=== PATIENT | male | born 1960 | race Caucasian/White ===

== ENCOUNTER 2016-09-04 10:49 | Inpatient (IN) ==
--- NOTE | 2016-09-04 11:38 | EKG Report ---
Stationary ECG Study [facility] ER Test Date: 09/04/2016 11:18:10 AM Pat Name: FRANKIE MEDINA Department: Room: Gender: M [employer] Operator: : 1960 Requested by: Miguel Keller Order Number: [id number] Honey MD: ELBERT MARRERO Intervals [place] Rate: 99 P: 71 ID: [id number] QRS: 77 QRSD: 107 T: 65 QT: 342 QTc: 398 Interpretive Statements SINUS RHYTHM Electronically Signed On 09-04-16 13:58:34 CDT by ELBERT MARRERO [email or web address]
[2016-09-04 11:53] LABS: Basophils # 0.1 10*3/uL (0.0-0.2); Basophils % 0.6 % (0.0-0.8); Eosinophils % 0.4 % (0.00-10.9); Hematocrit 39.2 VOL% (42.0-52.0); Hemoglobin 14.5 GM/DL (14.0-18.0); Immature Granulocytes % 0.6 %; Immature Granulocytes Absolute 0.05 #; Lymphocytes # 1.2 10*3/uL (1.4-4.0); Lymphocytes % 13.8 % (21.2-54.2); Mean Corpuscular Hemoglobin 35 PG (27-34); Mean Corpuscular Volume 93.8 FL (87-102); Mean Platelet Volume 9.8 FL (9.6-12.0); Monocytes # 0.7 10*3/uL (0.11-0.8); Monocytes % 8.7 % (1.7-12.7); Neutrophils # 6.4 10*3/uL (1.4-7.4); Neutrophils % 75.9 % (38.7-73.9); Platelet Count 156 T/CUMM (130-400); Red Blood Count 4.18 MC/CUMM (3.8-5.5); Red Cell Distribution Width 12.4 % (9.3-17.3); White Blood Count 8.4 T/CUMM (4-12)
[2016-09-04 12:11] LABS: Albumin 4.5 G/DL (3.4-5.0); Bilirubin,Total 0.8 MG/DL (0.2-1.0); Calcium 12.5 MG/DL (8.5-10.1); Osmolality,Calculated 241.6 MOS/KG (273-304); Potassium 3.9 MMOL/L (3.5-5.1)
--- NOTE | 2016-09-04 12:30 | XRay Report ---
2 view chest. Indication: Chest pain. The heart is normal in size. The pulmonary vasculature is normal. There is no consolidation, pneumothorax, or pleural effusion. Carotid artery calcification is visible. Postsurgical changes in the neck. Impression: No acute abnormality. PROCEDURE INTERPRETED AT [facility] DEPARTMENT OF RADIOLOGY Final Report Signed by: Dr. Zully Alvarado
--- NOTE | 2016-09-04 13:52 | Emergency Department Note ---
Arrival - Arrival Chief Complaint: Chest Pain Stated Complaint: chest pain,dizzy ED Nursing Triage Note: Pt c/o chest pain, SOB, dizziness, and nausea x 1 wk. Mode of Arrival: Ambulatory Limitations: No Limitations Source: Patient Time Seen by Provider: 09/04/16 13:48 - History of Present Illness HPI Narrative: This 56-year-old white male presents with a 1 week history of dizziness, nausea with daily vomiting, and in the last 4 days associated with midepigastric retrosternal type chest pain. He specifically denies chills, fever, or shortness of breath. He states he has felt close to passing out in the last couple days but never all the way. He also presents with abraded forearms from what he describes as walking through prior patches. At the moment his main complaint is just generally not feeling well. He appears medically stable at the moment Onset (ago): week(s) (Patient presents 1 week post onset of symptoms) Allergies/Adverse Reactions: Allergies Allergy/AdvReac Type Severity Reaction Status Date / Time No Known Allergies Allergy Verified 06/08/14 10:10 Home Medications: Home Medications Medication Instructions Recorded Confirmed Type Cyclobenzaprine [Flexeril] 10 mg PO BID 06/08/14 09/04/16 History Gabapentin [Gabapentin] 800 mg PO QID 06/08/14 09/04/16 History metFORMIN XR [Glucophage Xr] 500 mg PO BID 06/08/14 09/04/16 History HYDROcodone/ACETAMIN 10-325 [[place] 1 tablet PO Q6H PRN #20 tablet 03/03/1509/04 Rx 10-325] Cholecalciferol (Vitamin D3) 50,000 unit PO WE 09/04/16 09/04/16 History [Vitamin D3] Cyanocobalamin (Vitamin B-12) 1,000 mcg PO DAILY 09/04/16 09/04/16 History [Vitamin B-12] Lisinopril/Hydrochlorothiazide 2 each PO DAILY 09/04/16 09/04/16 History [Lisinopril-Hctz 20-12.5 mg Tab] Medical,Surgical,& Family Hx - Medical History Cardio: History of: Hypertension Endocrine: History of: Diabetes Mellitus (NIDDM) ("borderline") - Social History Smoking Status: Current every day smoker Exam Vital Signs: Vital Signs Temperature 98.4 F 09/04/16 13:22 Pulse Rate 99 H 09/04/16 13:22 Respiratory Rate 20 09/04/16 13:22 Blood Pressure 117/75 09/04/16 13:22 O2 Sat by Pulse Oximetry 97 09/04/16 13:22 Course - Reevaluation(s) Reevaluation #1: Discussed with patient his severe metabolic abnormalities and need for admission - Consultations Consultation #1: Discussed with hospitalist service who will see for further evaluation and treatment. Results - Labs CBC & BMP: 09/04/16 11:30 09/04/16 11:30 Labs: I reviewed the lab and noted the negative cardiac's, severely depressed sodium, and renal azotemia. - Diagnostic Findings Procedure: Chest x-ray: image reviewed by me, report reviewed by me (Normal chest) Disposition Clinical Impression: Hyponatremia, Hypoglycemia, Noncardiac chest pain, Renal azotemia Case discussed with: patient Disposition: Still a Patient Condition: Guarded Time of Disposition: 14:43
[2016-09-04] MEDS ORDERED: NITROGLYCERIN SL 0.4 MG TABLET SL PRN (13:53)
[2016-09-04] MEDS ORDERED: KETOROLAC 30 MG/1 ML VIAL IV STA ×2 (13:53→13:56)
[2016-09-04] MEDS ORDERED: ONDANSETRON 4 MG/2 ML VIAL IV STA (13:53)
[2016-09-04] MEDS ORDERED: ASPIRIN 325 MG TABLET PO STA (13:53)
[2016-09-04] MEDS ORDERED: SODIUM CHLORIDE 0.9% 1,000 ML IV STA (13:53)
[2016-09-04] MEDS ORDERED: METOCLOPRAMIDE 10 MG/2 ML VIAL IV STA (13:55)
[2016-09-04] MEDS ORDERED: PANTOPRAZOLE 40 MG VIAL IV STA (13:55)
[2016-09-04] MEDS ORDERED: cefTRIAXone 1,000 MG in SODIUM CHLORIDE 0.9% 100 ML IV STA (13:56)
[2016-09-04] MEDS ORDERED: DEXTROSE 50% 25 GM/50 ML VIAL IV ONE (13:57)
[2016-09-04] MEDS ORDERED: PANTOPRAZOLE 40 MG VIAL IV ONE (14:07)
[2016-09-04] MEDS ORDERED: ONDANSETRON 4 MG/2 ML VIAL ONE (14:07)
[2016-09-04] MEDS ORDERED: METOCLOPRAMIDE 10 MG/2 ML VIAL ONE ×2 (14:07→14:32)
[2016-09-04] MEDS ORDERED: ASPIRIN 325 MG TABLET ONE (14:08)
[2016-09-04] MEDS ORDERED: KETOROLAC 30 MG/1 ML VIAL ONE (14:08)
[2016-09-04] MEDS ORDERED: cefTRIAXone 1,000 MG VIAL ONE (14:09)
[2016-09-04] MEDS ORDERED: ALUM/MAG/SIMETH/LIDO VISC 1:1 30 ML BOTTLE PO STA (14:40)
[2016-09-04] MEDS ORDERED: NITROGLYCERIN 2% OINT 1 INCH/GM PACK TOP STA (14:41)
[2016-09-04] MEDS ORDERED: NITROGLYCERIN 2% OINT 1 INCH/GM PACK TOP ONE (14:44)
[2016-09-04] MEDS ORDERED: ALUM/MAG/SIMETH/LIDO VISC 1:1 30 ML BOTTLE PO ONE (14:47)
--- NOTE | 2016-09-04 14:57 | Hospitalist History & Physical ---
<Salbador Pulido - Last Filed: 09/04/16 16:18> Assessment and Plan (1) Hyponatremia Status: Acute Assessment and plan: Sodium was noted at 117 at the time of ED encounter. This may be secondary to volume depletion related to thiazide diuretic use. We will gently rehydrate and reassess in a.m.. We will carefully correct the deficit and recheck labs in a.m. Current Visit: Yes (2) Chest pain Status: Acute Assessment and plan: The patient certainly has multiple risk factors that may attribute to acute coronary syndrome. The patient has documented hypertension, diabetes, and is a current cigarette smoker. We will conduct a full cardiac workup; serial cardiac enzymes, echocardiogram, carotid Dopplers, lipid panel, and thyroid panel. If findings are positive, we will consult cardiology to evaluate. Current Visit: Yes (3) Hypertension Status: Acute Assessment and plan: Blood pressures are stable. We will hold current oral antihypertensive agents for now. Patient is currently taking a thiazide diuretic this may be a causative factor for the crows hyponatremia and acute kidney injury. We will monitor closely Current Visit: Yes (4) Acute kidney injury Status: Acute Assessment and plan: BUN and creatinine noted at 34 and 2.60. This may be largely attributed to volume depletion. The patient is currently on a thiazide agent for hypertension control. We will hold all antihypertensives for now and gently rehydrate. We will recheck labs in a.m; if no improvement we will consult renal. Current Visit: Yes (5) Nicotine addiction Status: Acute Assessment and plan: Patient reports that he is a current everyday smoker has no desire to quit. We will order nicotine patch for use during the clinical encounter if patient desires. Current Visit: Yes History of Present Illness Chief complaint: Chest pain/nausea/vomiting/shortness of breath History of present illness: This is a very pleasant 56-year-old male that presented to the ED at [facility] this afternoon for the evaluation of chest pain, shortness of breath, dizziness, and nausea. Patient has a medical history significant for: Hypertension, nicotine addiction, and diabetes mellitus. The patient reports no surgical history at the time of encounter. The patient reports the onset of the above symptoms 1 week prior to presentation. Initially , the patient reported that he was experiencing dizziness, nausea, and vomiting. He reports the initiation of some mid epigastric pain 4 days ago. He states that he "almost fell out a couple of times"; however he never passed out. The patient became alarmed due to the duration of the symptoms and decided to present to the ED for further evaluation. The patient was assessed at the time of ED presentation; labs were obtained. Complete blood count reported white blood cell count 8.4, hemoglobin 14.5, hematocrit 39.2, and platelet count 156. Coagulation panel reported d-dimer 1.4. Chemistry panel reported sodium at 117, potassium 3.9, chloride 72, carbon dioxide 31, BUN 34, creatinine 2.60, and glucose 67. Cardiac enzymes reported troponin at less than 0.015 and BNP at less than 2. Serum alcohol level was noted at 90. Chest x-ray was obtained which was essentially negative for any acute cardiopulmonary processes. After brief discussion with both Dr. Bowen and Dr. Argueta, the patient will be admitted to the hospitalist services for continuation of care. Medications have been reviewed and reconciled. CODE STATUS has been discussed; the patient is a FULL CODE. Home Medications Medication Instructions Recorded Confirmed Type Cyclobenzaprine [Flexeril] 10 mg PO BID 06/08/14 09/04/16 History Gabapentin [Gabapentin] 800 mg PO QID 06/08/14 09/04/16 History metFORMIN XR [Glucophage Xr] 500 mg PO BID 06/08/14 09/04/16 History HYDROcodone/ACETAMIN 10-325 [[place] 1 tablet PO Q6H PRN #20 tablet 03/03/1509/04 Rx 10-325] Cholecalciferol (Vitamin D3) 50,000 unit PO WE 09/04/16 09/04/16 History [Vitamin D3] Cyanocobalamin (Vitamin B-12) 1,000 mcg PO DAILY 09/04/16 09/04/16 History [Vitamin B-12] Lisinopril/Hydrochlorothiazide 2 each PO DAILY 09/04/16 09/04/16 History [Lisinopril-Hctz 20-12.5 mg Tab] Allergies Allergy/AdvReac Type Severity Reaction Status Date / Time No Known Allergies Allergy Verified 06/08/14 10:10 Medical,Surgical,& Family Hx - Medical History Cardio: History of: Hypertension Endocrine: History of: Diabetes Mellitus (NIDDM) ("borderline") - Social History Smoking Status: Current every day smoker Exam - Constitutional Vitals: Period Temp Pulse Resp BP Sys/Patino Pulse Ox Last 24 Hr 97.5 F-98.4 F 99-101 20-20 108-129/61-75 97-98 General appearance: normal weight, no acute distress - Head Head exam: Present: normal inspection, normocephalic, atraumatic - Eye Eye exam: Present: EOMI, conjunctival injection Pupils: Present: MARGOT, normal accommodation - ENT ENT exam: Present: normal exam, normal external ear exam, normal oropharynx - Neck Neck exam: Present: normal inspection. Absent: lymphadenopathy, meningismus, thyromegaly - Respiratory Respiratory exam: Present: clear to auscultation bilaterally. Absent: rales, rhonchi, stridor, wheezes - Cardiovascular Cardiovascular exam: Present: regular rate and rhythm. Absent: carotid bruit, diastolic murmur, gallop, JVD, rubs, systolic murmur - GI/Abdominal GI/Abdominal exam: Present: normal bowel sounds, soft - Extremities Exam Extremities exam: Present: normal inspection, normal capillary refill, full ROM. Absent: edema - Back Exam Back exam: Present: normal inspection - Neurological Exam Neurological exam: Present: alert, oriented X3, CN II-XII intact - Psychiatric Psychiatric exam: Present: normal affect, normal mood. Absent: depressed - Skin Skin exam: Present: normal color, warm, dry Results - Labs CBC & BMP: 09/04/16 11:30 09/04/16 11:30 Lab Results: I have reviewed the past 24 hour labs <Pravin Argueta - Last Filed: 09/04/16 16:50> History of Present Illness History of present illness: Patient seen and examined independently of BRUCE Pulido, agree with history, assessment and plan as documented. 56 y/o WM presents with epigastric pain and N/V. Symptoms for around a week. HTN, DM and current smoker. No denies any family history of heart problems. A/P; DESI: most likely secondary to dehydration, IV diuresis, ua, urine lytes and renal u/s Hyponatremia: most likely secondary to dehydration, iv fluids, check osmolality Hypercalcemia: possibly 2/2 dehydration, iv fluids, check vit d, tsh, hold hctz , check vit d (on supplementation), if no improvement will ignitiate further work-up Epigastric/chest pain: not consistent with acs, does have risk factors, trend troponin, echo Dizziness; also possibly 2/2 dehydration, iv fluids, check orthostatic vitals, carotid dopplers, monitor closely Nausea/vomiting: reports preceded by pain. will monitor Dehydration: Works in a hot environment, decrease po intake today at work. IV fluids, check ua and cpk DM; SSI HTN; holding lisinpirl-hctz Exam - Constitutional Vitals: Period Temp Pulse Resp BP Sys/Patino Pulse Ox Last 24 Hr 97.5 F-98.4 F 98-101 18-20 108-157/61-86 97-100 Results - Labs CBC & BMP: 09/04/16 11:30 09/04/16 11:30
--- NOTE | 2016-09-04 16:09 | ECHO Report ---
Lalit Guillen Exam Date: 09/04/2016 15:07 Referring Physician: Technologist: Ros Garcia RDCS Age: 56 Ht (in): 69 Wt (lb): 180 Gender: M Exam Location: [facility] Echo Indications: Chest pain, unspecified, Dizziness and giddiness, Shortness of breath, Essential (primary) hypertension, NIDDM, Nicotine dependence, cigarettes, uncomplicated BP: 117 / 75 HR: 97 Rhythm: Sinus Technical Quality: Fair IMPRESSIONS 1. Left ventricle is normal size and systolic function with ejection fraction of 60%. Normal wall thickness. No segmental wall motion normality's. 2. Other cardiac chambers are normal size and function. 3. Aortic valve with some sclerosing and calcification but good excursion without stenosis. There is mild to moderate aortic insufficiency. 4. Other cardiac valves are normal anatomically functionally. 5. No pericardial effusion is noted. MEASUREMENTS (Male / Female) Normal Values 2D ECHO LV Diastolic Diameter PLAX 4.3 cm 4.2 - 5.9 / 3.9 - 5.3 cm LV Systolic Diameter PLAX 2.8 cm LV Fractional Shortening PLAX 36.4 % IVS Diastolic Thickness 1.0 cm 0.6 - 1.0 / 0.6 - 0.9 cm LVPW Diastolic Thickness 1.0 cm 0.6 - 1.0 / 0.6 - 0.9 cm RV Internal Dim ED PLAX 2.4 cm Aortic Root Diameter 3.4 cm LA Systolic Diameter LX 3.3 cm 3.0 - 4.0 / 2.7 - 3.8 cm FINDINGS Left Ventricle Normal left ventricular cavity size. Normal left ventricular wall thickness. Left ventricular ejection fraction is estimated at 60 %. Right Ventricle The right ventricle is normal in size and function. Right Atrium The right atrium is normal in size. Left Atrium The left atrium is normal in size. Mitral Valve Morphologically normal mitral valve without significant stenosis or prolapse. There is no mitral regurgitation. Aortic Valve Mild aortic valve calcification. Mild to moderate aortic valve regurgitation. Tricuspid Valve Morphologically normal tricuspid valve without significant stenosis or regurgitation. Pulmonary artery systolic pressure is normal. Pulmonic Valve Morphologically normal pulmonic valve without significant stenosis. There is no pulmonic regurgitation. Pericardium Normal pericardium without effusion. Aorta Normal ascending aorta dimension. Gabriele Ross MD (Electronically Signed) Final Date: 04 September 2016 16:08
[2016-09-04] MEDS ORDERED: DOCUSATE SODIUM 100 MG CAPSULE PO PRN (17:33)
[2016-09-04] MEDS ORDERED: NICOTINE 21 MG/24 HR PATCH TRANSDERM PRN (17:33)
[2016-09-04] MEDS ORDERED: GLUCAGON 1 MG VIAL IM PRN (17:33)
[2016-09-04] MEDS ORDERED: ONDANSETRON 4 MG/2 ML VIAL IV PRN (17:33)
[2016-09-04] MEDS ORDERED: DEXTROSE 50% 25 GM/50 ML VIAL IV PRN (17:33)
[2016-09-04] MEDS ORDERED: ALUMINUM/MAGNES/SIMETH MAX STR 30 ML UDCUP PO PRN (17:33)
[2016-09-04] MEDS ORDERED: ACETAMINOPHEN 325 MG TABLET PO PRN (17:33)
[2016-09-04] MEDS ORDERED: ENOXAPARIN 30 MG/0.3 ML SYRINGE SUBCUT SCH (17:33)
[2016-09-04] MEDS: INSULIN LISPRO 100 UNIT/ML SUBCUT SCH ×2 (17:59→21:22)
[2016-09-04] MEDS: GABAPENTIN 400 MG CAPSULE PO SCH ×2 (18:12→20:39)
[2016-09-04] MEDS: SODIUM CHLORIDE 0.9% 1,000 ML IV SCH (18:14)
--- NOTE | 2016-09-04 19:01 | Ultrasound Report ---
Bilateral renal ultrasound. Indication: Renal failure. No prior study. The kidneys are normal in size. The right kidney measures 12.3 x 5.4 x 5.4 cm. The left kidney measures 12.6 x 6.3 x 6.6 cm. The parenchymal echogenicity is normal. The cortical thickness is normal. No hydronephrosis. No cystic or solid masses. There is fatty infiltration of the liver. Impression: No abnormality is seen. PROCEDURE INTERPRETED AT [facility] DEPARTMENT OF RADIOLOGY Final Report Signed by: Dr. Zully Alvarado
[2016-09-04 19:08] LABS: Apearance,Urine CLEAR (Clear); Bilirubin,Urine Negative (Negative); Blood, Urine Negative (Negative); Glucose,Urine (UA) 150 mg/dL (Negative); Ketones,Urine Negative (Negative); Nitrite,Urine Negative (Negative); Protein,Urine Negative; RBC,Urine <1 /HPF (0-4); Urine Color Yellow (Yellow); Urine Specific Gravity 1.006 (1.001-1.035); Urine Urobilinogen < 2.0 EU/DL (0.2-1.0); WBC,Urine 2 /HPF (0-6)
--- NOTE | 2016-09-04 19:09 | Ultrasound Report ---
Bilateral carotid Doppler. Indication: Dizziness. Grayscale, color-flow, and spectral analysis performed and interpreted. Within both carotid bulbs, there is mixed atherosclerotic plaque. The right internal carotid artery peak systolic velocity is 67 cm/s, with an IC/CC ratio 1.0. The left internal carotid artery peak systolic velocity is 76 cm/s, with an IC/CC ratio 0.9. There is antegrade flow within each vertebral artery. Impression: Using NASCET criteria, findings consistent with less than 50% stenosis bilaterally. PROCEDURE INTERPRETED AT [facility] DEPARTMENT OF RADIOLOGY Final Report Signed by: Dr. Zully Alvarado
[2016-09-04 19:12] LABS: Barbiturates Screen,Urine Negative (Negative); Benzodiazepines Screen,Urine Negative (Negative); Cannabinoid Screen,Urine Negative (Negative); Opiate Screen,Urine Positive (Negative); Phencyclidine Screen,Urine Negative (Negative)
[2016-09-04] MEDS: ZALEPLON 5 MG CAPSULE PO PRN (20:39)
[2016-09-05] MEDS: SODIUM CHLORIDE 0.9% 1,000 ML IV SCH ×4 (02:17→20:55)
[2016-09-05 06:08] LABS: Basophils # 0.1 10*3/uL (0.0-0.2); Eosinophils # 0.1 10*3/uL (0.0-0.87); Eosinophils % 0.9 % (0.00-10.9); Hematocrit 34.8 VOL% (42.0-52.0); Hemoglobin 12.7 GM/DL (14.0-18.0); Immature Granulocytes % 0.7 %; Immature Granulocytes Absolute 0.04 #; Lymphocytes # 1.4 10*3/uL (1.4-4.0); Lymphocytes % 23.3 % (21.2-54.2); Mean Corpuscular HGB Conc 36.5 GM/DL (32-36); Mean Corpuscular Hemoglobin 35 PG (27-34); Mean Corpuscular Volume 96.7 FL (87-102); Mean Platelet Volume 10.3 FL (9.6-12.0); Monocytes # 0.5 10*3/uL (0.11-0.8); Monocytes % 9.1 % (1.7-12.7); Neutrophils # 3.8 10*3/uL (1.4-7.4); Platelet Count 125 T/CUMM (130-400); Red Cell Distribution Width 12.4 % (9.3-17.3); White Blood Count 5.8 T/CUMM (4-12)
[2016-09-05 06:39] LABS: Risk Ratio 1.56
[2016-09-05 06:47] LABS: Magnesium 1.9 MG/DL (1.8-2.4); Thyroid Stimulating Hormone 0.809 uIU/ml (0.358-3.74)
[2016-09-05 08:21] LABS: Albumin 3.5 G/DL (3.4-5.0); Calcium 10.4 MG/DL (8.5-10.1); Total Protein 6.6 G/DL (6.4-8.3)
[2016-09-05 08:22] LABS: Osmolality,Calculated 259.4 MOS/KG (273-304); Potassium 4.2 MMOL/L (3.5-5.1)
[2016-09-05] MEDS: INSULIN LISPRO 100 UNIT/ML SUBCUT SCH ×4 (08:33→20:58)
[2016-09-05] MEDS: CYANOCOBALAMIN 500 MCG TABLET PO SCH (09:42)
[2016-09-05] MEDS: GABAPENTIN 400 MG CAPSULE PO SCH ×4 (09:42→20:53)
[2016-09-05] MEDS: PANTOPRAZOLE 40 MG TABLET PO SCH (09:42)
--- NOTE | 2016-09-05 11:24 | Hospitalist Progress Note ---
<Adriane Pulidoda - Last Filed: 09/05/16 11:21> Assessment and Plan (1) Hyponatremia Status: Acute Assessment and plan: Sodium was noted at 117 at the time of ED encounter. This may be secondary to volume depletion related to thiazide diuretic use. We will gently rehydrate and reassess in a.m.. We will carefully correct the deficit and recheck labs in a.m. 09/05-sodium has improved to 126 from 117 on yesterday. We will continue to carefully correct the deficit and recheck labs in a.m. Current Visit: Yes (2) Chest pain Status: Acute Assessment and plan: The patient certainly has multiple risk factors that may attribute to acute coronary syndrome. The patient has documented hypertension, diabetes, and is a current cigarette smoker. We will conduct a full cardiac workup; serial cardiac enzymes, echocardiogram, carotid Dopplers, lipid panel, and thyroid panel. If findings are positive, we will consult cardiology to evaluate. Current Visit: Yes (3) Hypertension Status: Acute Assessment and plan: Blood pressures are stable. We will hold current oral antihypertensive agents for now. Patient is currently taking a thiazide diuretic this may be a causative factor for the crows hyponatremia and acute kidney injury. We will monitor closely Current Visit: Yes (4) Acute kidney injury Status: Acute Assessment and plan: BUN and creatinine noted at 34 and 2.60. This may be largely attributed to volume depletion. The patient is currently on a thiazide agent for hypertension control. We will hold all antihypertensives for now and gently rehydrate. We will recheck labs in a.m; if no improvement we will consult renal. 09/05-we will continue to carefully rehydrate. We will continue to hold all thiazide agents. Will reassess renal function in a.m. Current Visit: Yes (5) Nicotine addiction Status: Acute Assessment and plan: Patient reports that he is a current everyday smoker has no desire to quit. We will order nicotine patch for use during the clinical encounter if patient desires. Current Visit: Yes Hospitalist: Subjective Interval history: Patient seen and examined; no significant overnight events reported. Noted improvement in his sodium level sodium level improved to 126 today. Reports epigastric pain during breakfast. Exam - Constitutional Vitals: Period Temp Pulse Resp BP Sys/Patino Pulse Ox Last 24 Hr 97.5 F-98.7 F 83-101 18-93 110-157/60-86 92-100 General appearance: normal weight, no acute distress - Head Head exam: Present: normal inspection, normocephalic, atraumatic - Eye Eye exam: Present: EOMI, conjunctival injection Pupils: Present: MARGOT, normal accommodation - ENT ENT exam: Present: normal exam, normal external ear exam, normal oropharynx - Neck Neck exam: Present: normal inspection, lymphadenopathy, meningismus, thyromegaly - Respiratory Respiratory exam: Present: clear to auscultation bilaterally. Absent: rales, rhonchi, stridor, wheezes - Cardiovascular Cardiovascular exam: Present: regular rate and rhythm. Absent: carotid bruit, diastolic murmur, gallop, JVD, rubs, tachycardia - GI/Abdominal GI/Abdominal exam: Present: normal bowel sounds, other (Epigastric pain during meals reported) - Extremities Exam Extremities exam: Present: normal inspection, normal capillary refill, full ROM , edema - Back Exam Back exam: Present: normal inspection - Neurological Exam Neurological exam: Present: alert, oriented X3, CN II-XII intact - Psychiatric Psychiatric exam: Present: normal affect, normal mood - Skin Skin exam: Present: normal color, warm, dry Results - Labs CBC & BMP: 09/05/16 04:25 09/05/16 04:19 Lab Results: I have reviewed the past 24 hour labs <Pravin Argueta - Last Filed: 09/05/16 16:58> Hospitalist: Subjective Interval history: Patient seen and examined independently of BRUCE Pulido, agree with assessment and plan as documented.Today reports that epigastric pain is associated with meals. Pain seems to be more related to GERD. He is a smoker with htn and dm, so would benefit from stress testing, either inpatient or outpatient, will consult cardiology in the morning. Exam - Constitutional Vitals: Period Temp Pulse Resp BP Sys/Patino Pulse Ox Last 24 Hr 97.5 F-98.7 F 74-95 18-93 110-151/60-80 92-95 Results - Labs CBC & BMP: 09/05/16 04:25 09/05/16 04:19
[2016-09-05] MEDS: ZALEPLON 5 MG CAPSULE PO PRN (20:54)
[2016-09-05] MEDS: SIMVASTATIN 20 MG TABLET PO SCH (20:54)
[2016-09-05] MEDS: ENOXAPARIN 40 MG/0.4 ML SYRINGE SUBCUT SCH (20:54)
[2016-09-06 07:01] LABS: Basophils # 0.1 10*3/uL (0.0-0.2); Basophils % 1.7 % (0.0-0.8); Eosinophils # 0.1 10*3/uL (0.0-0.87); Eosinophils % 2.1 % (0.00-10.9); Hematocrit 35.7 VOL% (42.0-52.0); Hemoglobin 12.2 GM/DL (14.0-18.0); Immature Granulocytes % 0.6 %; Immature Granulocytes Absolute 0.03 #; Lymphocytes # 1.8 10*3/uL (1.4-4.0); Lymphocytes % 38.5 % (21.2-54.2); Mean Corpuscular HGB Conc 34.2 GM/DL (32-36); Mean Corpuscular Hemoglobin 34 PG (27-34); Mean Corpuscular Volume 100.3 FL (87-102); Mean Platelet Volume 9.9 FL (9.6-12.0); Monocytes # 0.5 10*3/uL (0.11-0.8); Monocytes % 10.4 % (1.7-12.7); Neutrophils # 2.2 10*3/uL (1.4-7.4); Neutrophils % 46.7 % (38.7-73.9); Platelet Count 135 T/CUMM (130-400); Red Blood Count 3.56 MC/CUMM (3.8-5.5); Red Cell Distribution Width 12.4 % (9.3-17.3); White Blood Count 4.7 T/CUMM (4-12)
[2016-09-06] MEDS: INSULIN LISPRO 100 UNIT/ML SUBCUT SCH ×4 (07:16→21:51)
[2016-09-06 07:27] LABS: Magnesium 1.6 MG/DL (1.8-2.4); Phosphorous 2.3 MG/DL (2.5-4.9)
[2016-09-06 07:29] LABS: Albumin 3.5 G/DL (3.4-5.0); Bilirubin,Total 0.8 MG/DL (0.2-1.0); Calcium 9.7 MG/DL (8.5-10.1); Osmolality,Calculated 270.4 MOS/KG (273-304); Potassium 4.5 MMOL/L (3.5-5.1); Total Protein 6.4 G/DL (6.4-8.3)
[2016-09-06] MEDS ORDERED: MAGNESIUM SULF RIDER 4 GM in PREMIX 1 EACH IV PRN (07:53)
[2016-09-06] MEDS ORDERED: MAGNESIUM SULF RIDER 2 GM in PREMIX 1 EACH IV PRN (07:53)
--- NOTE | 2016-09-06 09:36 | Hospitalist Progress Note ---
<Salbador Pulido - Last Filed: 09/06/16 09:33> Assessment and Plan (1) Hyponatremia Status: Acute Assessment and plan: Sodium was noted at 117 at the time of ED encounter. This may be secondary to volume depletion related to thiazide diuretic use. We will gently rehydrate and reassess in a.m.. We will carefully correct the deficit and recheck labs in a.m. 09/05-sodium has improved to 126 from 117 on yesterday. We will continue to carefully correct the deficit and recheck labs in a.m. 09/06-sodium has improved sodium noted at 133 from 126 on yesterday. Current Visit: Yes (2) Chest pain Status: Acute Assessment and plan: The patient certainly has multiple risk factors that may attribute to acute coronary syndrome. The patient has documented hypertension, diabetes, and is a current cigarette smoker. We will conduct a full cardiac workup; serial cardiac enzymes, echocardiogram, carotid Dopplers, lipid panel, and thyroid panel. If findings are positive, we will consult cardiology to evaluate. 09/05-no further episodes of chest pain reported. Cardiology requested for consultation. Awaiting cardiology evaluation for further direction. Current Visit: Yes (3) Hypertension Status: Chronic Assessment and plan: Blood pressures are stable. We will hold current oral antihypertensive agents for now. Patient is currently taking a thiazide diuretic this may be a causative factor for the crows hyponatremia and acute kidney injury. We will monitor closely Current Visit: Yes (4) Acute kidney injury Status: Acute Assessment and plan: BUN and creatinine noted at 34 and 2.60. This may be largely attributed to volume depletion. The patient is currently on a thiazide agent for hypertension control. We will hold all antihypertensives for now and gently rehydrate. We will recheck labs in a.m; if no improvement we will consult renal. 09/05-we will continue to carefully rehydrate. We will continue to hold all thiazide agents. Will reassess renal function in a.m. 09/06-BUN 25 creatinine noted at 1.10; thiazide diuretics remain on hold. Current Visit: Yes (5) Nicotine addiction Status: Chronic Assessment and plan: Patient reports that he is a current everyday smoker has no desire to quit. We will order nicotine patch for use during the clinical encounter if patient desires. Current Visit: Yes Qualifiers: Nicotine product type: cigarettes (6) Hyperlipidemia Status: Acute Assessment and plan: HDL cholesterol noted at 102. The patient has multiple risk factors for the development of hyper lipidemia. The patient reports that he had been told in the past that he had "high cholesterol". In addition, he reports that he had been prescribed a lipid-lowering agent in the past however he stopped taking it. We will start a low-dose statin and reassess. Current Visit: Yes Hospitalist: Subjective Interval history: Patient seen and examined; no significant overnight events reported. Awaiting cardiology consultation for further direction. Exam - Constitutional Vitals: Period Temp Pulse Resp BP Sys/Patino Pulse Ox Last 24 Hr 97.1 F-98.5 F 71-85 18-20 120-157/61-83 92-98 General appearance: normal weight, no acute distress - Head Head exam: Present: normal inspection, normocephalic, atraumatic - Eye Eye exam: Present: EOMI. Absent: conjunctival injection Pupils: Present: MARGOT, normal accommodation - ENT ENT exam: Present: normal exam, normal external ear exam, normal oropharynx - Neck Neck exam: Present: normal inspection. Absent: lymphadenopathy, meningismus, tenderness, thyromegaly - Respiratory Respiratory exam: Present: clear to auscultation bilaterally. Absent: rales, rhonchi, stridor, wheezes - Cardiovascular Cardiovascular exam: Present: regular rate and rhythm. Absent: carotid bruit, diastolic murmur, gallop, JVD, rubs, systolic murmur - GI/Abdominal GI/Abdominal exam: Present: normal bowel sounds, soft - Extremities Exam Extremities exam: Present: normal inspection, normal capillary refill, full ROM. Absent: edema - Back Exam Back exam: Present: normal inspection - Neurological Exam Neurological exam: Present: alert, oriented X3, CN II-XII intact - Psychiatric Psychiatric exam: Present: normal affect, normal mood - Skin Skin exam: Present: normal color, warm, dry Results - Labs CBC & BMP: 09/06/16 06:40 09/06/16 06:40 Lab Results: I have reviewed the past 24 hour labs <Pravin Argueta - Last Filed: 09/06/16 16:51> Hospitalist: Subjective Interval history: Patient seen and examined independently of BRUCE Pulido, agree with assessment and plan as documented. Epigastric pain is improving, still with some mild pain with meals. Encouraged to try mylanta to see if it helps. Labs are much better. Stress test tomorrow, possible discharge afterwards. Exam - Constitutional Vitals: Period Temp Pulse Resp BP Sys/Patino Pulse Ox Last 24 Hr 97.1 F-98.5 F 69-85 18-20 125-157/65-83 92-98 Results - Labs CBC & BMP: 09/06/16 06:40 09/06/16 06:40
[2016-09-06] MEDS: CYANOCOBALAMIN 500 MCG TABLET PO SCH (10:38)
[2016-09-06] MEDS: PANTOPRAZOLE 40 MG TABLET PO SCH (10:38)
[2016-09-06] MEDS: GABAPENTIN 400 MG CAPSULE PO SCH ×4 (10:38→21:34)
[2016-09-06] MEDS: SODIUM CHLORIDE 0.9% 1,000 ML IV SCH (10:40)
--- NOTE | 2016-09-06 10:42 | Ultrasound Report ---
Exam: US gallbladder Date:09/06/2016 7:00 AM Indication: Abdominal pain, nausea epigastric pain Comparison: Previous renal sonogram 09/04/2016 Findings: Liver: Liver measures possibly 15.1 cm. No focal abnormalities are present. Hepatic and portal veins appear patent. Gallbladder: Normal size shape and configuration without stones CBD: 5 mm Pancreas: Poorly visualized on today's study. Kidneys Right kidney: 12.5 x 5.5 x 5.4 cm. No hydronephrosis perinephric fluid collections or focal mass present. Left kidney: Not evaluated Aorta IVC: Not evaluated Spleen: Not evaluated Ascites: None identified Impression: 1. Normal right upper quadrant sonogram hybrid the pancreas is somewhat less than optimally visualized. Ultrasound images were stored and captured PROCEDURE INTERPRETED AT [facility] DEPARTMENT OF RADIOLOGY Final Report Signed by: Dr. Keon Reid
--- NOTE | 2016-09-06 15:04 | Cardiology Consult Note ---
Mat Ward April, RN, am scribing for, and in the presence of, Gabriele Ross MD 15:04. Assessment and Plan - Time spent with patient Time spent with patient: Greater than 30 minutes (Due to assessment, planning, documentation, medication review) (1) Epigastric pain Status: Acute Current Visit: Yes (2) Hypertension Status: Chronic Current Visit: Yes (3) Nicotine addiction Status: Chronic Current Visit: Yes Qualifiers: Nicotine product type: cigarettes History of Present Illness - Data of Consult Patient: new to practice Consult date: 09/05/16 Requesting Physician: Pravin Argueta Primary care physician: Bashir Celis III. - Consult Narrative Reason for consult: Chest pain/epigastric pain History of present illness: [employer] Resources Manager: New to cardiology PCP: Dr. Vimal BETANCOURT Mr. Guillen is a 56 year old male who has never been seen by [facility]. He denies any known cardiac history or ever having had a stress test or heart catheterization. He has a history of hypertension and borderline diabetes. He denies any surgical history other than having a steel plate placed in his neck. Family history is positive for brother and father with hypertension. He reports he is a current everyday smoker, smoking 1 pack per day. He states he has not had any since admission and that he may try to quit. For about a week now he has been having episodes of epigastric pain that tends to come on after he eats or drinks. He describes it as a burning, sharp pain. It is also associated with dizziness, nausea, and vomiting. He has not had any shortness of breath or palpitations. This pain is not aggravated by exertion or relieved by rest. September 04 he had an episode that was worse than normal and lasted for 4-5 hours. He says it was a 9 or 10 on a scale of 1-10. Because it was worse than normal and lasted longer than it usually does, he presented emergency department for further evaluation. He is unsure what he was given in the emergency department, but states that his pain was relieved. He had some pain yesterday that was not as severe as the pain on Sunday. He has had no pain since then. The pain is not reproducible on palpation. EKG on admission showed sinus rhythm heart rate of 99. Echocardiogram with ejection fraction of 60%. His creatinine was elevated at 2.6 on admission, sodium was low at 117. Troponin has been negative 3. BNP was less than 2. Renal ultrasound and chest x-ray were without acute abnormality. Carotid ultrasound with less than 50% stenosis bilaterally. This morning he is seen without complaint of chest pain, shortness of breath, palpitations. He is not having any nausea vomiting this morning. He was given fluids since admission and his creatinine has improved to 1.10 and sodium has improved to 133. Magnesium is low this morning at 1.6. He had a gallbladder ultrasound done this morning, the results are pending. Patient personally interviewed and examined by me and chart reviewed. I agree with the above note as described. The patient's symptomatology is somewhat atypical for cardiac. He does have risk factors for coronary disease. Patient should have this test carried out specifically exercise cardiac perfusion study. In our discussion he agrees to this but wishes to have it done before discharge. He is already eaten today and we will thus plan on doing it tomorrow morning. CC: Pravin Argueta MD - Home Medications and Allergies Home Medications: Home Medications Medication Instructions Recorded Confirmed Type Cyclobenzaprine [Flexeril] 10 mg PO BID 06/08/14 09/04/16 History Gabapentin [Gabapentin] 800 mg PO BID 06/08/14 09/04/16 History metFORMIN XR [Glucophage Xr] 500 mg PO BID 06/08/14 09/04/16 History HYDROcodone/ACETAMIN 10-325 [[place] 1 tablet PO Q6H PRN #20 tablet 03/03/1509/04 Rx 10-325] Cholecalciferol (Vitamin D3) 50,000 unit PO WE 09/04/16 09/04/16 History [Vitamin D3] Cyanocobalamin (Vitamin B-12) 1,000 mcg PO DAILY 09/04/16 09/04/16 History [Vitamin B-12] Lisinopril/Hydrochlorothiazide 2 each PO DAILY 09/04/16 09/04/16 History [Lisinopril-Hctz 20-12.5 mg Tab] Allergies/Adverse Reactions: Allergies Allergy/AdvReac Type Severity Reaction Status Date / Time No Known Allergies Allergy Verified 06/08/14 10:10 - Constitutional Constitutional: Present: as per HPI - EENT Eyes: Present: requires corrective lense. Absent: blurry vision Ears: Present: decreased hearing. Absent: ear pain, tinnitus Nose, mouth and throat: Present: neck pain. Absent: dysphagia, epistaxis, headache(s) - Cardiovascular Cardiovascular: Present: lightheadedness. Absent: chest pain at rest, chest pain with activity, diaphoresis, dyspnea, dyspnea on exertion, edema, radiating jaw, neck or arm pain, orthopnea, palpitations - Respiratory Respiratory: Absent: cough, dyspnea, hemoptysis, dyspnea on exertion, wheezing - Gastrointestinal Gastrointestinal: Present: constipation, nausea, vomiting, other (epigastric pain). Absent: diarrhea, hematemesis, hematochezia, melena - Genitourinary Genitourinary: Absent: dysuria, hematuria - Musculoskeletal Musculoskeletal: Present: back pain, limited range of motion. Absent: muscle weakness - Neurological Neurological: Present: dizziness, headache(s). Absent: abnormal gait, abnormal speech, confusion, frequent falls, syncope - Psychiatric Psychiatric: Absent: anxiety, depression - Endocrine Endocrine: Absent: fatigue - Hematologic/Lymphatic Hematologic/Lymphatic: Absent: easy bleeding, easy bruising Medical,Surgical,& Family Hx - Medical History Cardio: History of: Hypertension Endocrine: History of: Diabetes Mellitus (NIDDM) ("borderline") Musculoskeletal: History of: Back/Neck Problems - Surgical History Orthopedic Surgeries: Surgical HX of;: Spinal Surgery (neck) - Family History Family History: Reports;: Family Cancer (dad), Family Diabetes (dad borderline) , Family Hypertension (father, brother) - Social History Smoking Status: Current every day smoker (Smokes 1 pack a day) Have you smoked in the last 12 months: Yes Time spent discussing smoking cessation with patient: 3 to 10 minutes Frequency of Alcohol Use: Occasionally Type of Drug Use: None Lives With:: Alone Functional capacity: independent ambulation Physical Examination Vital Signs Temp Pulse Resp BP Pulse Ox 97.5 F L 101 H 20 108/61 97 09/04/16 11:17 09/04/16 11:17 09/04/16 11:17 09/04/16 11:17 09/04/16 11:17 General: Present: Appears Well, No Apparent Distress HEENT: Present: PERRL, Mucus Membranes Moist Neck: Present: Supple Neck, Midline Trachea, No Bruit Cardiac: Present: Reg Rate and Rhythm, No Murmur Lungs: Present: Normal Breath Sounds, No Wheeze, Rales, Rhonchi Neuro: Absent: Resting Tremor, Essential Tremor Abdomen: Present: Soft, Active Bowel Sounds, Non-Tender. Absent: Distended Skin: Absent: Rash, Suspicious Lesions Musculoskeletal: Present: Pain in Joint. Absent: Decreased Range of Motion Gait: Present: Normal Gait Extremities: Present: Normal Gait, No Edema, Normal Upper Extr. Pulses, Normal Lower Extr. Pulses Result/EKG - Labs CBC & BMP: 09/06/16 06:40 09/06/16 06:40 Lab Results: I have reviewed the past 24 hour labs Labs: Laboratory Results - last 24 hr 09/05/16 09/05/16 09/05/16 10:57 15:45 19:44 WBC RBC Hgb Hct MCV MCH MCHC RDW Plt Count MPV Neut % (Auto) Lymph % (Auto) [place] % (Auto) Eos % (Auto) Baso % (Auto) Neut # (Auto) Lymph # (Auto) [place] # (Auto) Eos # (Auto) Baso # (Auto) Immature Gran % Nucleated RBC % Immature Gran # Nucleated RBCs # Sodium Potassium Chloride Carbon Dioxide Anion Gap BUN Creatinine GFR Calculation BUN/Creatinine Ratio Glucose POC Glucose 300 H 103 251 H Calculated Osmolality Calcium Phosphorus Magnesium Total Bilirubin AST ALT Alkaline Phosphatase Total Protein Albumin Globulin Albumin/Globulin Ratio 09/05/16 09/06/16 09/06/16 20:56 06:40 06:40 WBC 4.7 RBC 3.56 L Hgb 12.2 L Hct 35.7 L MCV 100.3 MCH 34 MCHC 34.2 RDW 12.4 Plt Count 135 MPV 9.9 Neut % (Auto) 46.7 Lymph % (Auto) 38.5 [place] % (Auto) 10.4 Eos % (Auto) 2.1 Baso % (Auto) 1.7 H Neut # (Auto) 2.2 Lymph # (Auto) 1.8 [place] # (Auto) 0.5 Eos # (Auto) 0.1 Baso # (Auto) 0.1 Immature Gran % 0.6 Nucleated RBC % 0.0 Immature Gran # 0.03 Nucleated RBCs # 0.00 Sodium 133 L Potassium 4.5 Chloride 95 L Carbon Dioxide 29 Anion Gap 13.5 BUN 25 H Creatinine 1.10 GFR Calculation 85 BUN/Creatinine Ratio 22.00 H Glucose 125 H POC Glucose 197 H Calculated Osmolality 270.4 L Calcium 9.7 Phosphorus Magnesium Total Bilirubin 0.80 AST 30 ALT 32 Alkaline Phosphatase 59 Total Protein 6.4 Albumin 3.5 Globulin 2.9 Albumin/Globulin Ratio 1.2 09/06/16 09/06/16 06:40 07:16 WBC RBC Hgb Hct MCV MCH MCHC RDW Plt Count MPV Neut % (Auto) Lymph % (Auto) [place] % (Auto) Eos % (Auto) Baso % (Auto) Neut # (Auto) Lymph # (Auto) [place] # (Auto) Eos # (Auto) Baso # (Auto) Immature Gran % Nucleated RBC % Immature Gran # Nucleated RBCs # Sodium Potassium Chloride Carbon Dioxide Anion Gap BUN Creatinine GFR Calculation BUN/Creatinine Ratio Glucose POC Glucose 142 H Calculated Osmolality Calcium Phosphorus 2.3 L Magnesium 1.6 L Total Bilirubin AST ALT Alkaline Phosphatase Total Protein Albumin Globulin Albumin/Globulin Ratio - EKG EKG results: interpreted by me EKG shows: sinus rhythm Cody Ward John Timothy, MD, personally performed the services described in this documentation, ascribed by Ashleigh Rivero RN in my presence, and it is both accurate and complete 504 .
[2016-09-06] MEDS: ZALEPLON 5 MG CAPSULE PO PRN (21:35)
[2016-09-06] MEDS: ENOXAPARIN 40 MG/0.4 ML SYRINGE SUBCUT SCH (21:35)
[2016-09-06] MEDS: SIMVASTATIN 20 MG TABLET PO SCH (21:43)
[2016-09-07] MEDS: SODIUM CHLORIDE 0.9% 1,000 ML IV SCH ×2 (00:57→17:52)
[2016-09-07 07:39] LABS: Calcium 9.3 MG/DL (8.5-10.1); Magnesium 1.9 MG/DL (1.8-2.4); Osmolality,Calculated 271.2 MOS/KG (273-304); Potassium 4.2 MMOL/L (3.5-5.1)
[2016-09-07 07:43] LABS: Magnesium 1.8 MG/DL (1.8-2.4); Phosphorous 2.4 MG/DL (2.5-4.9)
--- NOTE | 2016-09-07 08:59 | Hospitalist Progress Note ---
Assessment and Plan (1) Hyponatremia Status: Acute Assessment and plan: Sodium was noted at 117 at the time of ED encounter. This may be secondary to volume depletion related to thiazide diuretic use. We will gently rehydrate and reassess in a.m.. We will carefully correct the deficit and recheck labs in a.m. 09/05-sodium has improved to 126 from 117 on yesterday. We will continue to carefully correct the deficit and recheck labs in a.m. 09/06-sodium has improved sodium noted at 133 from 126 on yesterday. 09/07-sodium noted at 132 from 133 yesterday. Current Visit: Yes (2) Chest pain Status: Acute Assessment and plan: The patient certainly has multiple risk factors that may attribute to acute coronary syndrome. The patient has documented hypertension, diabetes, and is a current cigarette smoker. We will conduct a full cardiac workup; serial cardiac enzymes, echocardiogram, carotid Dopplers, lipid panel, and thyroid panel. If findings are positive, we will consult cardiology to evaluate. 09/06-no further episodes of chest pain reported. Cardiology requested for consultation. Awaiting cardiology evaluation for further direction. 09/07-no further episodes of chest pain reported. The patient was evaluated by cardiology on yesterday. Stress test scheduled this a.m. Awaiting results and further recommendations. Current Visit: Yes (3) Hypertension Status: Chronic Assessment and plan: Blood pressures are stable. We will hold current oral antihypertensive agents for now. Patient is currently taking a thiazide diuretic this may be a causative factor for the crows hyponatremia and acute kidney injury. We will monitor closely Current Visit: Yes (4) Acute kidney injury Status: Acute Assessment and plan: BUN and creatinine noted at 34 and 2.60. This may be largely attributed to volume depletion. The patient is currently on a thiazide agent for hypertension control. We will hold all antihypertensives for now and gently rehydrate. We will recheck labs in a.m; if no improvement we will consult renal. 09/05-we will continue to carefully rehydrate. We will continue to hold all thiazide agents. Will reassess renal function in a.m. 09/06-BUN 25 creatinine noted at 1.10; thiazide diuretics remain on hold. 09/07-BUN 18 and creatinine noted at 1.00. Renal function is normalized. We will continue to hold thiazide diuretics. Current Visit: Yes (5) Nicotine addiction Status: Chronic Assessment and plan: Patient reports that he is a current everyday smoker has no desire to quit. We will order nicotine patch for use during the clinical encounter if patient desires. Current Visit: Yes Qualifiers: Nicotine product type: cigarettes (6) Hyperlipidemia Status: Acute Assessment and plan: HDL cholesterol noted at 102. The patient has multiple risk factors for the development of hyper lipidemia. The patient reports that he had been told in the past that he had "high cholesterol". In addition, he reports that he had been prescribed a lipid-lowering agent in the past however he stopped taking it. We will start a low-dose statin and reassess. Current Visit: Yes Hospitalist: Subjective Interval history: Patient seen and examined; no significant overnight events reported. Patient is n.p.o. pending cardiac stress test this morning. Patient may be appropriate for discharge this afternoon depending on cardiology findings. Exam - Constitutional Vitals: Period Temp Pulse Resp BP Sys/Patino Pulse Ox Last 24 Hr 96.5 F-97.9 F 64-79 18-20 125-164/69-83 96-100 General appearance: normal weight, no acute distress - Head Head exam: Present: normal inspection, normocephalic, atraumatic - Eye Eye exam: Present: EOMI, conjunctival injection Pupils: Present: MARGOT, normal accommodation - ENT ENT exam: Present: normal exam, normal external ear exam, normal oropharynx - Neck Neck exam: Present: normal inspection. Absent: lymphadenopathy, meningismus, tenderness, thyromegaly - Respiratory Respiratory exam: Present: clear to auscultation bilaterally. Absent: rales, rhonchi, stridor, wheezes - Cardiovascular Cardiovascular exam: Present: regular rate and rhythm. Absent: carotid bruit, diastolic murmur, gallop, JVD, rubs, systolic murmur - GI/Abdominal GI/Abdominal exam: Present: normal bowel sounds, soft - Extremities Exam Extremities exam: Present: normal inspection, normal capillary refill, full ROM. Absent: edema - Back Exam Back exam: Present: normal inspection - Neurological Exam Neurological exam: Present: alert, oriented X3 - Psychiatric Psychiatric exam: Present: normal affect - Skin Skin exam: Present: normal color, warm, dry Results - Labs CBC & BMP: 09/06/16 06:40 09/07/16 06:00 Lab Results: I have reviewed the past 24 hour labs
[2016-09-07] MEDS: INSULIN LISPRO 100 UNIT/ML SUBCUT SCH ×3 (09:05→17:53)
[2016-09-07] MEDS: CYANOCOBALAMIN 500 MCG TABLET PO SCH (10:42)
[2016-09-07] MEDS: GABAPENTIN 400 MG CAPSULE PO SCH ×3 (10:42→16:14)
[2016-09-07] MEDS: PANTOPRAZOLE 40 MG TABLET PO SCH (10:43)
[2016-09-07 12:06] VITALS: BP 175/79
--- NOTE | 2016-09-07 15:16 | Nuclear Medicine Report ---
EXERCISE CARDIOLITE SCAN DATE: 2016 The patient underwent exercise treadmill testing using a modified Kevyn protocol. He walked for 8 mi nutes of a Kevyn protocol to heart rate of 141, which is 85% of his maximal age predicted heart rate. No diagnostic EKG changes or symptoms consistent with ischemia noted. At peak exercise, the patient was given a 30-mCi dose of Technetium complex to Cardiolite. He underw ent radionuclide scanning. This was compared to a rest scan obtained prior to exercise after a 10-mC i dose of Technetium complex to Cardiolite. Comparing stress and rest imaging, there appears to be decreased activity noted in the apical segment . This is a concordant finding and is consistent with apical thinning. There is no good evidence to suggest significant ischemia based on this perfusion study. Wall motion study demonstrates normal left ventricular systolic wall motion. Gated ejection fraction is calculated to be in the 49% range. CONCLUSIONS: 1. GATED EJECTION FRACTION 49%. 2. NORMAL LEFT VENTRICULAR SYSTOLIC WALL MOTION. 3. PERFUSION STUDY WITHOUT GOOD EVIDENCE TO SUGGEST SIGNIFICANT ISCHEMIA OR SCAR WITH SOME ARTIFACT NOTED RELATED TO APICAL THINNING. Procedure performed and interpreted at [facility] Department of Radiology.
--- NOTE | 2016-09-07 16:25 | Discharge Summary ---
Hospital Course - Hospital Course Hospital Course: 56-year-old male that presented to the ED at [facility] for the evaluation of epigastric/chest pain, shortness of breath, dizziness, and nausea. Patient has a medical history significant for: Hypertension, nicotine addiction, and diabetes mellitus. The patient reported the onset of the above symptoms 1 week prior to presentation. Initially, the patient reported that he experienced dizziness, nausea, and vomiting. He reported the initiation of some mid epigastric pain 4 days ago. He stated that he "almost fell out a couple of times"; however he never passed out. The patient was assessed at the time of ED presentation; labs were obtained. Chemistry panel reported sodium at 117, potassium 3.9, chloride 72, carbon dioxide 31, BUN 34, creatinine 2.60, and glucose 67. Cardiac enzymes reported troponin at less than 0.015 and BNP at less than 2. Patient was admitted to the hospitalist service for acute kidney injury, hyponatremia and hypercalcemia all due to dehydration. He was hydrated with IV fluids, with gradual improvement. Patient with epigastric pain associated with eating. Serial troponins negative. Gallbladder ultrasound without acute process. Due to patient's cardiac risk factors, cardiology was consulted. Stress test was performed 09/07/16 without evidence of ischemia. He has now reached maximal benefit of inpatient stay and will be discharged to home. - Time spent with patient Time with patient DS: Greater than 30 minutes (35) Diagnosis - Discharge Diagnosis (1) Hyponatremia Status: Resolved (2) Hypertension Status: Chronic (3) Acute kidney injury Status: Resolved (4) Nicotine addiction Status: Chronic (5) Epigastric pain Status: Resolved (6) Hyperlipidemia Status: Chronic Discharge Plan - Discharge Data Condition at Discharge: Stable Discharge Diet: diabetic diet Activity: increase activity as tolerated Hygiene: no restrictions Weight Bearing at Discharge: weight bear as tolerated Driving: no restrictions Contact your physician if you experience:: fever over 101, Nausea/Vomiting - Discharge Medications New Pantoprazole Tab [Protonix Tab] 40 mg PO DAILY #30 tablet Simvastatin [Zocor] 20 mg PO BEDTIME #30 tablet Continue Cyclobenzaprine [Flexeril] 10 mg PO BID metFORMIN XR [Glucophage Xr] 500 mg PO BID Gabapentin 800 mg PO BID HYDROcodone/ACETAMIN 10-325 [[place] 10-325] 1 tablet PO Q6H PRN #20 tablet PRN Reason: Pain Lisinopril/Hydrochlorothiazide [Lisinopril-Hctz 20-12.5 mg Tab] 2 each PO DAILY Cyanocobalamin (Vitamin B-12) [Vitamin B-12] 1,000 mcg PO DAILY Cholecalciferol (Vitamin D3) [Vitamin D3] 50,000 unit PO WE - Follow Up or Referral - Forms/Instructions Exam - Constitutional Vitals: Period Temp Pulse Resp BP Sys/Patino Pulse Ox Last 24 Hr 96.5 F-97.9 F 64-79 18-20 141-175/79-83 96-100 General appearance: over weight - Head Head exam: Present: normocephalic, atraumatic - Eye Eye exam: Present: EOMI Pupils: Present: MARGOT - ENT ENT exam: Present: normal exam - Neck Neck exam: Present: normal inspection - Respiratory Respiratory exam: Present: clear to auscultation bilaterally. Absent: rhonchi, wheezes - Cardiovascular Cardiovascular exam: Present: regular rate and rhythm - GI/Abdominal GI/Abdominal exam: Present: normal bowel sounds, soft. Absent: tenderness, rebound - Extremities Exam Extremities exam: Present: normal inspection - Back Exam Back exam: Present: normal inspection - Neurological Exam Neurological exam: Present: alert, oriented X3 - Psychiatric Psychiatric exam: Present: normal affect, normal mood - Skin Skin exam: Present: warm, intact Discharge Results Procedures and tests throughout hospitalization: Pending Orders 09/04/16 18:12 Blood Culture Stat Labs on day of discharge: Labs from last 24 hours 09/07/16 09/07/16 09/07/16 16:15 10:53 07:05 Sodium Potassium Chloride Carbon Dioxide Anion Gap BUN Creatinine GFR Calculation BUN/Creatinine Ratio Glucose POC Glucose 271 H 158 H 148 H Calculated Osmolality Calcium Phosphorus Magnesium 09/07/16 09/07/16 09/06/16 06:00 06:00 18:43 Sodium 134 L Potassium 4.2 Chloride 98 Carbon Dioxide 28 Anion Gap 12.2 BUN 18 Creatinine 1.00 GFR Calculation 96 BUN/Creatinine Ratio 18.00 Glucose 135 H POC Glucose 85 Calculated Osmolality 271.2 L Calcium 9.3 Phosphorus 2.4 L Magnesium 1.8 1.9 Preliminary micro results at discharge 09/04/16 18:12 Blood Culture - Preliminary Blood No growth at 1 day 09/04/16 18:12 Blood Culture - Preliminary Blood No growth at 1 day DS: Provider Date of admission: 09/04/16 14:52 Primary care physician: Jung Mueller MD Attending physician on admission: Pravin Argueta MD Consults: 09/05/16 16:53 Consult to Physician [CONS] Routine Comment: chest/epigastric pain, risk factor,stress in vs ou Consulting Provider: Gabriele Ross When should Consulting Provider be notified: In am Discharging clinician: Pravin Argueta MD
--- NOTE | 2016-09-08 08:39 | Cardiology Progress Note ---
Mat Ward April, RN, am scribing for, and in the presence of, Gabriele Ross MD 08:38. Assessment and Plan (1) Epigastric pain Status: Resolved Assessment and plan: With negative cardiac perfusion study this is certainly not a anginal equivalent. (2) Hypertension Status: Chronic (3) Nicotine addiction Status: Chronic Qualifiers: Nicotine product type: cigarettes (4) Chest pain Status: Acute Assessment and plan: His chest pain is atypical for cardiac especially being lower chest and probably more associated with his GI issues. His cardiac stress test was normal as well as was his cardiac perfusion study. Cardiology - PN: Subj Interval history: History of present illness: [facility]: New to cardiology PCP: Dr. Vimal BETANCOURT SUMMARY: Mr. Guillen is a 56 year old male who has never been seen by record retrieval specialist. He denies any known cardiac history or ever having had a stress test or heart catheterization. He has a history of hypertension and borderline diabetes. He denies any surgical history other than having a steel plate placed in his neck. Family history is positive for brother and father with hypertension. He reports he is a current everyday smoker, smoking 1 pack per day. He states he has not had any since admission and that he may try to quit. For about a week now he has been having episodes of epigastric pain that tends to come on after he eats or drinks. He describes it as a burning, sharp pain. It is also associated with dizziness, nausea, and vomiting. He has not had any shortness of breath or palpitations. This pain is not aggravated by exertion or relieved by rest. On September 04 he had an episode that was worse than normal and lasted for 4-5 hours. He says it was a 9 or 10 on a scale of 1-10. Because it was worse than normal and lasted longer than it usually does, he presented emergency department for further evaluation. He is unsure what he was given in the emergency department, but states that his pain was relieved. He had some pain yesterday that was not as severe as the pain on Sunday. He has had no pain since then. The pain is not reproducible on palpation. EKG on admission showed sinus rhythm heart rate of 99. Echocardiogram with ejection fraction of 60%. His creatinine was elevated at 2.6 on admission, sodium was low at 117. Troponin has been negative 3. BNP was less than 2. Renal ultrasound and chest x-ray were without acute abnormality. Carotid ultrasound with less than 50% stenosis bilaterally. September 07, 2016: Mr. Guillen is seen resting in bed this morning without complaint. He denies having any further chest pain or nausea and vomiting. Gallbladder ultrasound done yesterday was negative. His pressures have been slightly elevated, otherwise vitals have been unremarkable. He was given magnesium replacement yesterday and today his magnesium is 1.8. He is scheduled for cardiac stress testing this morning. Patient personally interviewed and examined today and chart reviewed. I agree with the assessment as noted. Patient stress test was unremarkable and cardiac perfusion study was normal. This patient certainly could be discharged. No further cardiac evaluation at this time. He needs of continued cardiovascular risk factors which we discussed with the patient which includes monitoring his lipids and blood pressures. Also smoking cessation. Exam (Progress Note) - Constitutional Vitals: Period Temp Pulse Resp BP Sys/Patino Pulse Ox Last 24 Hr 96.5 F-97.9 F 64-79 18-20 125-164/69-83 96-100 Exam: General: Present: Appears Well, No Apparent Distress HEENT: Present: PERRL, Mucus Membranes Moist Neck: Present: Supple Neck, Midline Trachea, No Bruit Cardiac: Present: Reg Rate and Rhythm, No Murmur Lungs: Present: Normal Breath Sounds, No Wheeze, Rales, Rhonchi Neuro: Absent: Resting Tremor, Essential Tremor Abdomen: Present: Soft, Active Bowel Sounds, Non-Tender. Absent: Distended Skin: Absent: Rash, Suspicious Lesions Musculoskeletal: Present: Pain in Joint. Absent: Decreased Range of Motion Gait: Present: Normal Gait Extremities: Present: Normal Gait, No Edema, Normal Upper Extr. Pulses, Normal Lower Extr. Pulses Result/EKG - Labs CBC & BMP: 09/06/16 06:40 09/07/16 06:00 Lab Results: I have reviewed the past 24 hour labs Labs: Laboratory Results - last 24 hr 09/06/16 09/06/16 09/06/16 12:08 14:43 15:58 Sodium Potassium Chloride Carbon Dioxide Anion Gap BUN Creatinine GFR Calculation BUN/Creatinine Ratio Glucose POC Glucose 257 H 292 H 299 H Calculated Osmolality Calcium Phosphorus Magnesium 09/06/16 09/07/16 09/07/16 18:43 06:00 06:00 Sodium 134 L Potassium 4.2 Chloride 98 Carbon Dioxide 28 Anion Gap 12.2 BUN 18 Creatinine 1.00 GFR Calculation 96 BUN/Creatinine Ratio 18.00 Glucose 135 H POC Glucose 85 Calculated Osmolality 271.2 L Calcium 9.3 Phosphorus 2.4 L Magnesium 1.9 1.8 09/07/16 07:05 Sodium Potassium Chloride Carbon Dioxide Anion Gap BUN Creatinine GFR Calculation BUN/Creatinine Ratio Glucose POC Glucose 148 H Calculated Osmolality Calcium Phosphorus Magnesium - EKG EKG results: interpreted by me EKG shows: sinus rhythm Cody Ward John Timothy, MD, personally performed the services described in this documentation, ascribed by Ashleigh Rivero RN in my presence, and it is both accurate and complete 838 .
== END 2016-09-07 18:00 | disposition home or self-care (01) | DRG 683 ==
LOC: N.ED 10:49 → N.EDINP 14:52 → N.2E 17:30
PROVIDERS: ADMIT Internal Medicine; ATTEND Internal Medicine